=== PATIENT | female | born 1965 | race Caucasian/White ===

== ENCOUNTER 2019-05-06 13:10 | Outpatient (CLI) | payer BC, SELFPAY ==
--- NOTE | 2019-05-06 13:19 | XR_ITS ---
WS: [id number] XR chest 2V* [id number] REASON FOR EXAM: DYSPNEA FINDINGS: Elevation of the right hemidiaphragm. The heart mediastinum were normal. The lung zavaleta are well aerated. There is no pneumonia, pleural effusion, pulmonary edema, pneumotho rax, or mass effect. The hilum and apices normal. XR/XR chest 2V* [id number] IMPRESSION: Negative chest for active pathology. Eventration of the right hemidiaphragm.
== END 2019-05-06 13:11 | disposition home or self-care (01) ==
LOC: RADWPI 13:15
PROVIDERS: Family Provider Electrodiagnostic Medicine; PCP Electrodiagnostic Medicine; Visit Provider Electrodiagnostic Medicine
DX: R06.02 Shortness of breath (principal)
CPT/HCPCS: 71046

== ENCOUNTER 2019-07-04 15:43 | Outpatient (CLI) | payer BC, SELFPAY ==
--- NOTE | 2019-07-04 15:49 | XR_ITS ---
WS: [id number] PROCEDURE: XR chest 2V* [id number] CLINICAL INFORMATION: DYSPNEA COMPARISON: May 06, 2019 FINDINGS: Heart: Normal cardiac silhouette. Aortic calcification. Lungs: Lungs are clear. No consolidation or pleural fluid. Bones: Normal visualized bony structures. XR/XR chest 2V* [id number] IMPRESSION: No acute chest findings. No acute pulmonary infiltrates.
== END 2019-07-04 15:44 | disposition home or self-care (01) ==
LOC: RADWPI 15:46
PROVIDERS: Family Provider Electrodiagnostic Medicine; PCP Electrodiagnostic Medicine; Visit Provider Electrodiagnostic Medicine
DX: R06.00 Dyspnea, unspecified (principal)
CPT/HCPCS: 71046

== ENCOUNTER → 2019-12-12 09:06 | Outpatient (BNVA) | payer BC, SELFPAY | PROVIDERS: Family Provider Electrodiagnostic Medicine; PCP Electrodiagnostic Medicine; Visit Provider Nurse Practitioner Family | DX: N30.20 Other chronic cystitis without hematuria (principal) | CPT/HCPCS: 81003 ==

== ENCOUNTER 2020-01-14 11:59 | Emergency (ER) | payer BC, SELFPAY ==
[2020-01-14 12:28] VITALS: BP 155/82; PULSE 88; RESP 26; TEMP 37.1; O2SAT 93; BMI 28.3
--- NOTE | 2020-01-14 12:41 | XR_ITS ---
WS: [id number] XR chest 1V portable [id number] REASON FOR EXAM: syncope FINDINGS: Compared to the previous examination of 07/04/2019, the patient has developed interstitial infiltrativ e changes in the left lower lung field. Similar changes are seen in the right mid lung field. The heart is mildly enlarged. No pleural effusion. XR/XR chest 1V portable [id number] IMPRESSION: Infiltrative changes of unknown chronicity. Findings could represent acute/suba cute pneumonitis.
--- NOTE | 2020-01-14 12:42 | ECG_ITS ---
[facility] Test Date: 2020-01-14 Pat Name: Aleida Green Department: Room: Gender: Female Psychiatric Assistant: : 1965 Requested By: Ramila oCtto Order Number: [id number] Amador MD: RIAN GUZMAN Measurements Intervals [place] Rate: 85 P: 51 MN: 147 QRS: 61 QRSD: 103 T: 24 QT: 347 QTc: 415 Interpretive Statements SINUS RHYTHM POSSIBLE LEFT ATRIAL ENLARGEMENT [-0.1mV P WAVE IN V1/V2] POSSIBLE INFERIOR MYOCARDIAL INFARCTION , PROBABLY OLD [30 ms Q WAVE IN II/aVF] No previous ECG available for comparison Electronically Signed On 01-16-2020 15:26:32 DEFENSIVE SECONDARY COACH by RIAN GUZMAN [id number]
--- NOTE | 2020-01-14 12:55 | ED_ITS ---
HPI - COVID General: Chief Complaint: COVID symptoms Stated Complaint: COVID + X 1 WK, SYMPTOMS WORSE Time Seen by Provider: 01/14/20 12:43 Source: patient and EMS Mode of arrival: EMS Limitations: no limitations Triage information: Has fever, cough or shortness of breath . Exposure to COVID + person last 14 days History of Present Illness: HPI Narrative: Pleasant 54-year-old female patient presents to the emergency department with 9-day history of Covid symptoms. She reports was tested for Covid on 01/06/2020 with positive results from [employer] [facility]. States past 2 days, increased fever and worsening symptoms. States temperature constantly between 100-101. She reports decreases slightly with use of Tylenol and ibuprofen. States was seen by her primary care provider several days ago with prescription of prednisone and Z-Godwin, has been completed without improvement of symptoms. She has history of hypertension, shallow breathing and positive cough, worsening cough past 2 days. MD complaint: known COVID positive Prior covid testing: yes, results known Prior testing date: 01/06/20 COVID 19 common symptoms: positive fever(s), chills, cough, non-productive cough, dyspnea, fatigue, body aches, headache(s), nasal congestion, nausea and diarrhea; negative productive cough COVID 19 other sytmptoms: positive lethargy; negative chest pain or confusion Onset (ago): day(s) (9) Severity: moderate and rapidly worsening Pertinent comorbid conditions: hypertension Treatment prior to arrival: acetaminophen, ibuprofen, antibiotics and steroids COVID Results: No Data to Display Review of Systems General: Reports: 10 or more systems reviewed and unremarkable except in HPI and below Const: Reports: fever(s), chills, body aches, change in appetite, fatigue and malaise Eyes: Denies: blurry vision or eye redness ENMT: Reports: hoarseness, nasal discharge, nasal congestion and post nasal drip Card: Denies: chest pain, palpitations, irregular heart rhythm, lightheadedness or dyspnea on exertion Resp: Reports: dyspnea, non-productive cough and chest congestion; Denies: productive cough GI: Reports: nausea and diarrhea; Denies: abdominal pain, constipation or GI cramping : Reports: difficulty voiding and urinary incontinence (with cough); Denies: dysuria Musc: Denies: neck pain, back pain or joint pain Skin/Breast: Denies: rash, pruritus, skin tenderness or changes in skin color Neuro: Reports: headache(s); Denies: numbness in extremities, confusion or behavioral changes Psych: Denies: anxiety or depression Michael/Lymph: Denies: easy bruising PFS ED PFSH: Medical History (Updated 01/14/20 @ 16:03 by FERNANDA Torres) History of deviated nasal septum Recurrent UTI Surgical History Hx of breast implants, bilateral Family History Father Diabetes CAD (coronary artery disease) Other Hypertension Social History Smoking and tobacco status: never smoked Alcohol intake: current Alcohol intake frequency: holidays/special occasions only Adopted: No Caregiver/support person: No Lives independently: No Household members: spouse Marital status: Current occupational status: employed Physical Exam Const: COMMON NORMALS: no acute distress, patient oriented x3 and alert GENERAL APPEARANCE: cooperative, well hydrated and other (appears not feeling well) NUTRITIONAL APPEARANCE: overweight ORIENTATION/CONSCIOUSNESS: Yes awake, Yes oriented to person, Yes oriented to place and Yes oriented to time HENMT: COMMON NORMALS: normocephalic, atraumatic, Normal external nose present and moist oral mucous membranes HEAD & SCALP: normal to inspection, normoc ephalic and atraumatic FACE & SINUS: normal facial exam NOSE: Normal external nose present MOUTH: Normal oral and palatal mucosa present THROAT: posterior oropharynx normal Eye: COMMON NORMALS: Equal, round and reactive pupils present and EOMs intact bilaterally GENERAL EYE: appearance normal, both eyes and all related structures PUPIL: Yes Equal, round and reactive pupils present Neck/C-Spine: COMMON NORMALS: full ROM and no lymphadenopathy GENERAL: Yes normal visual inspection and Yes trachea midline CERVICAL SPINE: Yes cervical ROM normal, No pain with cervical ROM, No Cervical spine tenderness and No Paracervical muscle tenderness Lymph: LYMPHATIC: no lymphadenopathy noted Chest: COMMONS NORMALS: normal inspection of the chest Resp: COMMON NORMALS: normal respiratory effort and clear to auscultation bilaterally EFFORT & INSPECTION: Yes able to speak in complete sentences, Yes symmetric chest movement, Yes tachypneic, No audible wheezes and No tracheal deviation AUSCULTATION: clear to auscultation bilaterally and diminished lung sounds bilateral in the lower lung zavaleta Cardio: COMMON NORMALS: regular rhythm, S1 normal heart sound present, S2 normal heart sound present and Peripheral pulses 2+ throughout RHYTHM: regular rhythm HEART SOUNDS: S1 normal heart sound present and S2 normal heart sound present PERIPHERAL PULSES: Peripheral pulses 2+ throughout GI: COMMON NORMALS: Normal to inspection, nondistended, normoactive bowel sounds present, Soft to palpation and non-tender INSPECTION: Yes normal to inspection PALPATION: Yes Soft to palpation, No Hepatomegaly present and No Splenomegaly present : COMMON NORMALS: Yes no CVA tenderness BLADDER/KIDNEY EXAM: Yes no CVA tenderness Back/Pelvis: COMMON NORMALS: no CVA tenderness, thoracic and lumbar spine normal to inspection and no thoracic nor lumbar tenderness THORACIC SPINE/UPPER BACK: Yes normal to inspection LUMBAR SPINE/LOWER BACK: Yes normal to inspection SACROILIAC JOINTS: Yes SI joints normal Extremity: COMMON NORMALS: normal to inspection and capillary refill normal GENERAL: Yes normal exam except as noted Neuro: COCO COMA SCALE: document GCS findings Boyden coma scale eye opening: Spontaneous Boyden coma scale verbal response: Orientated Boyden coma scale motor response: Obey commands Coco coma scale total score: 15 COMMON NORMALS: patient oriented x3 and no focal motor deficits SENSORIUM/ ORIENTATION: Yes alert, Yes oriented to person, Yes oriented to place and Yes oriented to time MOTOR EXAM: 5/5 motor strength present throughout Psych: COMMON NORMALS: mental status grossly normal, Normal thought process present and cooperative ACTIVITY/MOTOR BEHAVIOR: Yes appropriate eye contact THOUGHT PROCESS: Normal thought process present Skin: COMMON NORMALS: no rashes or lesions noted and turgor normal GENERAL SKIN EXAM: no rashes or lesions noted and turgor normal Course ED course: 54-year-old female patient presents to the emergency department with worsening Covid symptoms. Oxygen saturation 90% on room air when asleep, she did have occasional episode of oxygen saturation drop to 88 to 90%. C- reactive protein and ESR elevated consistent with illness. D-dimer 0.46, lactate 1.0. Influenza screen negative. IV fluids administered here in the ED along with Tylenol for fever. She is encouraged to stay in the hospital due to illness. She reports would like to go home with portable oxygen. She agrees to return to the emergency department if she worsens or has difficulty catching her breath or worsening symptoms. She was provided prescription of Zofran, benzonatate, Ventolin and dexamethasone. She was advised to push oral fluids as this will help with fever and prevent dehydration. Verbalized understanding, agrees to follow-up with a primary care provider in 1 week. She also agrees to return to the emergency department if she develops hypoxia on her home oxygen monitoring device. Vital Signs: Vital signs: Vital Signs Temperature 98.8 F 01/14/20 12:28 Pulse Rate 93 01/14/20 16:19 Respiratory Rate 16 01/14/20 16:19 Blood Pressure 146/89 01/14/20 16:19 Pulse Oximetry 92 01/14/20 16:19 MDM - COVID Lab Data: Labs: Lab Results 01/14/20 01/14/20 01/14/20 Range/Units 13:20 13:20 13:20 WBC 5.4 (4.0-10.0) 10^3/ uL RBC 4.34 (4.1-5.3) 10^6/u L Hgb 13.6 (11.5-15.3) g/dL Hct 41.9 (37.0-47.0) % MCV 96.5 (81-99) fL MCH 31.3 (28.0-34.0) pg MCHC 32.5 (30.0-36.0) g/dL RDW 12.1 (12.1-15.1) % Plt Count 163 (130-400) 10^3/c mm MPV 9.5 (7.4-10.4) fL Neut % (Auto) 73.5 % Lymph % (Auto) 19.0 % [place] % (Auto) 6.5 % Eos % (Auto) 0.2 % Baso % (Auto) 0.4 % Neut # (Auto) 3.98 (1.8-7.7) 10^3/u L Lymph # (Auto) 1.0 (0.8-4.8) 10^3/u L [place] # (Auto) 0.4 (0.2-0.9) 10^3/u L Eos # (Auto) 0.0 (0.0-0.8) 10^3/u L Baso # (Auto) 0.0 (0.0-0.1) 10^3/u L Nucleated RBC % (a uto) 0 % Nucleated RBCs # 0.0 /100WBC ESR 27 H (0-15) mm/hr D-Dimer 0.46 (0-0.59) ug/mIFE U Sodium (136-145) mmol/L Potassium (3.5-5.1) mmol/L Chloride (98-107) mmol/L Carbon Dioxide (22-29) mmol/L Anion Gap (5-19) BUN (6-20) mg/dL Creatinine (0.5-0.9) mg/dL GFR Calculation (90-130) mL/min Glucose (65-115) mg/dL Calculated Osmolal ity (285-295) mOsm/k g Lactate (0.5-2.2) mmol/L Calcium (8.5-10.5) mg/dL Total Bilirubin (0.15-1.2) mg/dL AST (0-32) U/L ALT (0-33) U/L Alkaline Phosphata se (35-105) IU/L Troponin T Baselin e (0-10) ng/L Troponin T 120 [place] (0-10) ng/L Delta Troponin T (0-10) ABS# C-Reactive Protein (0.0-4.9) mg/L Total Protein (6.6-8.7) g/dL Albumin (3.5-5.2) g/dL Globulin (1.3-4.6) g/dL Procalcitonin (0-0.5) ng/mL Influenza Type A A g (Negative) Influenza Type B A g (Negative) 01/14/20 01/14/20 01/14/20 Range/Units 13:20 13:20 13:20 WBC (4.0-10.0) 10^3/ uL RBC (4.1-5.3) 10^6/u L Hgb (11.5-15.3) g/dL Hct (37.0-47.0) % MCV (81-99) fL MCH (28.0-34.0) pg MCHC (30.0-36.0) g/dL RDW (12.1-15.1) % Plt Count (130-400) 10^3/c mm MPV (7.4-10.4) fL Neut % (Auto) % Lymph % (Auto) % [place] % (Auto) % Eos % (Auto) % Baso % (Auto) % Neut # (Auto) (1.8-7.7) 10^3/u L Lymph # (Auto) (0.8-4.8) 10^3/u L [place] # (Auto) (0.2-0.9) 10^3/u L Eos # (Auto) (0.0-0.8) 10^3/u L Baso # (Auto) (0.0-0.1) 10^3/u L Nucleated RBC % (a uto) % Nucleated RBCs # /100WBC ESR (0-15) mm/hr D-Dimer (0-0.59) ug/mIFE U Sodium 141 (136-145) mmol/L Potassium 4.0 (3.5-5.1) mmol/L Chloride 103 (98-107) mmol/L Carbon Dioxide 31 H (22-29) mmol/L Anion Gap 11.0 (5-19) BUN 10 (6-20) mg/dL Creatinine 0.6 (0.5-0.9) mg/dL GFR Calculation 103.8 (90-130) mL/min Glucose 96 (65-115) mg/dL Calculated Osmolal ity 291 (285-295) mOsm/k g Lactate 1.0 (0.5-2.2) mmol/L Calcium 8.2 L (8.5-10.5) mg/dL Total Bilirubin 0.3 (0.15-1.2) mg/dL AST 35 H (0-32) U/L ALT 41 H (0-33) U/L Alkaline Phosphata se 87 (35-105) IU/L Troponin T Baselin e 7 (0-10) ng/L Troponin T 120 [place] (0-10) ng/L Delta Troponin T (0-10) ABS# C-Reactive Protein 58.3 H (0.0-4.9) mg/L Total Protein 6.1 L (6.6-8.7) g/dL Albumin 3.9 (3.5-5.2) g/dL Globulin 2.2 (1.3-4.6) g/dL Procalcitonin 0.05 (0-0.5) ng/mL Influenza Type A A g (Negative) Influenza Type B A g (Negative) 01/14/20 01/14/20 Range/Units 13:50 15:00 WBC (4.0-10.0) 10^3/ uL RBC (4.1-5.3) 10^6/u L Hgb (11.5-15.3) g/dL Hct (37.0-47.0) % MCV (81-99) fL MCH (28.0-34.0) pg MCHC (30.0-36.0) g/dL RDW (12.1-15.1) % Plt Count (130-400) 10^3/c mm MPV (7.4-10.4) fL Neut % (Auto) % Lymph % (Auto) % [place] % (Auto) % Eos % (Auto) % Baso % (Auto) % Neut # (Auto) (1.8-7.7) 10^3/u L Lymph # (Auto) (0.8-4.8) 10^3/u L [place] # (Auto) (0.2-0.9) 10^3/u L Eos # (Auto) (0.0-0.8) 10^3/u L Baso # (Auto) (0.0-0.1) 10^3/u L Nucleated RBC % (a uto) % Nucleated RBCs # /100WBC ESR (0-15) mm/hr D-Dimer (0-0.59) ug/mIFE U Sodium (136-145) mmol/L Potassium (3.5-5.1) mmol/L Chloride (98-107) mmol/L Carbon Dioxide (22-29) mmol/L Anion Gap (5-19) BUN (6-20) mg/dL Creatinine (0.5-0.9) mg/dL GFR Calculation (90-130) mL/min Glucose (65-115) mg/dL Calculated Osmolal ity (285-295) mOsm/k g Lactate (0.5-2.2) mmol/L Calcium (8.5-10.5) mg/dL Total Bilirubin (0.15-1.2) mg/dL AST (0-32) U/L ALT (0-33) U/L Alkaline Phosphata se (35-105) IU/L Troponin T Baselin e (0-10) ng/L Troponin T 120 [place] 7.56 (0-10) ng/L Delta Troponin T 0.56 (0-10) ABS# C-Reactive Protein (0.0-4.9) mg/L Total Protein (6.6-8.7) g/dL Albumin (3.5-5.2) g/dL Globulin (1.3-4.6) g/dL Procalcitonin (0-0.5) ng/mL Influenza Type A A g Negative (Negative) Influenza Type B A g Negative (Negative) COVID Results: No Data to Display Discharge Plan Discharge Patient Disposition: Home Clinical Impression: COVID-19, Acute bronchitis due to 2019-nCoV Condition: Stable Prescriptions: New benzonatate 200 mg capsule 200 mg PO TID PRN (Reason: cough) Qty: 20 RF: 0 Zofran 4 mg tablet 4 mg PO Q4H PRN (Reason: Nausea And Vomiting) Qty: 10 RF: 0 Ventolin HFA 90 mcg/actuation HFA aerosol inhaler 2 puff INHALATION Q4H PRN (Reason: shortness of breath or wheezing) Qty: 18 RF: 0 dexamethasone 6 mg tablet 6 mg PO DAILY Qty: 10 RF: 0 No Action valsartan 320 mg tablet 320 mg PO DAILY RF: 0 levothyroxine 100 mcg capsule 100 mcg PO DAILY RF: 0 hydrochlorothiazide 12.5 mg tablet 12.5 mg PO DAILY RF: 0 aspirin [Adult Aspirin Regimen] 81 mg tablet,delayed release (DR/EC) 81 mg PO DAILY RF: 0 multivitamin with iron [Daily Multiple Vitamins/Iron] Tablet 1 tab PO DAILY RF: 0 cholecalciferol (vitamin D3) 25 mcg (1,000 unit) capsule 25 mcg PO DAILY RF: 0 Neuriva See Rx Instructions .ROUTE .COMPLEX RF: 0 fluticasone propionate 50 mcg/actuation spray,suspension 1 spray INTRANASAL DAILY RF: 0 Multivitamin And Mineral Tablet 1 tab PO DAILY RF: 0 Mucinex 1,200 mg Tablet Extended Release 12hr 1,200 mg PO BID RF: 0 Quercetin See Rx Instructions .ROUTE .COMPLEX RF: 0 Zicam See Rx Instructions .ROUTE .COMPLEX RF: 0 zinc 1 tab PO DAILY RF: 0 Discharge Orders: Discharge Order (Routine); Ordered 01/14/20 Ordered By: Ramila Nails Referrals: Reji Meza DO [Primary Care Provider] - Discharge Diet: Advance as tolerated and Clear Liquid Discharge Activity: Limit activity as instructed Patient Instructions: Acute Bronchitis (ED), Acute Nausea and Vomiting (ED), Viral Syndrome (ED) Activity Restrictions/Additional Instructions: Return to the emergency department if you develop difficulty breathing, inability to catch your breath, nausea and vomiting despite use of Zofran Test your oxygen level frequently, oxygen level should be above 90%, if low oxygen level occurs, oxygen at 90% or lower, you will need to return to the emergency department Push fluids, your body will require lots and lots of fluids because of fever. Fever can induce dehydration Continue Tylenol and ibuprofen as needed for fever and pain. May take 1 g of Tylenol 3 times daily, 2, 500 mg tablets 3 times daily, do not exceed this dose as Tylenol toxicity can occur Follow-up with your primary care doctor next week to ensure you are improving Coding Level of Care Code ED Telecommunications Line Installer for Chg Fwd Exam Comprehensive
[2020-01-14 13:00] VITALS: BP 125/85; PULSE 78; O2SAT 93
[2020-01-14] MEDS: sodium chloride 0.9% 1,000 ML 999 ML IV (13:30)
[2020-01-14 13:31] LABS: Basophils % 0.4 %; Eosinophils % 0.2 %; Hematocrit 41.9 % (37.0-47.0); Hemoglobin 13.6 g/dL (11.5-15.3); Mean Corpuscular HGB Conc 32.5 g/dL (30.0-36.0); Mean Corpuscular Hemoglobin 31.3 pg (28.0-34.0); Mean Corpuscular Volume 96.5 fL (81-99); Mean Platelet Volume 9.5 fL (7.4-10.4); Monocytes # 0.4 10^3/uL (0.2-0.9); Monocytes % 6.5 %; Neutrophils # 3.98 10^3/uL (1.8-7.7); Neutrophils % 73.5 %; Nucleated Red Blood Cells % 0 %; Platelet Count 163 10^3/cmm (130-400); Red Blood Count 4.34 10^6/uL (4.1-5.3); Red Cell Distribution Width 12.1 % (12.1-15.1); White Blood Count 5.4 10^3/uL (4.0-10.0)
[2020-01-14 13:45] LABS: D Dimer 0.46 ug/mIFEU (0-0.59)
[2020-01-14 13:51] LABS: Alanine Aminotransferase 41 U/L (0-33); Albumin Level 3.9 g/dL (3.5-5.2); Alkaline Phosphatase 87 IU/L (35-105); Aspartate Amino Transferase 35 U/L (0-32); Blood Urea Nitrogen 10 mg/dL (6-20); C Reactive Protein 58.3 mg/L (0.0-4.9); Calcium 8.2 mg/dL (8.5-10.5); Carbon Dioxide 31 mmol/L (22-29); Chloride 103 mmol/L (98-107); Globulin 2.2 g/dL (1.3-4.6); Glomerular Filtration Rate 103.8 mL/min (90-130); Glucose 96 mg/dL (65-115); Osmolality Calculated 291 mOsm/kg (285-295); Sodium 141 mmol/L (136-145); Total Bilirubin 0.3 mg/dL (0.15-1.2); Total Protein 6.1 g/dL (6.6-8.7)
[2020-01-14 13:52] LABS: Troponin(5th) Baseline 7 ng/L (0-10)
[2020-01-14 14:00] VITALS: BP 136/85; PULSE 93; O2SAT 92
[2020-01-14 14:23] LABS: Procalcitonin 0.05 ng/mL (0-0.5)
[2020-01-14 14:25] LABS: Erythrocyte Sedimentation Rate 27 mm/hr (0-15)
--- NOTE | 2020-01-14 14:42 | ECG_ITS ---
[facility] Test Date: 2020-01-14 Pat Name: Aleida Green Department: Room: Gender: Female Hot Mill Worker: : 1965 Requested By: Ramila Cotto Order Number: [id number] Amador MD: RIAN GUZMAN Measurements Intervals [place] Rate: 86 P: 47 [place]: 149 QRS: 43 QRSD: 101 T: 32 QT: 357 QTc: 428 Interpretive Statements SINUS RHYTHM POSSIBLE LEFT ATRIAL ENLARGEMENT [-0.1mV P WAVE IN V1/V2] Compared to ECG 01/14/2020 12:56:42 Myocardial infarct finding no longer present Electronically Signed On 01-16-2020 15:34:07 ENVELOPE MACHINE OPERATOR by RIAN GUZMAN [id number] f
[2020-01-14 14:46] LABS: Influenza A by IFA Negative (Negative); Influenza B by IFA Negative (Negative)
[2020-01-14 15:03] VITALS: BP 167/97; PULSE 93; RESP 16; O2SAT 92
[2020-01-14 15:45] LABS: Troponin 5 2HR 7.56 ng/L (0-10); Troponin 5 2HR Delta 0.56 ABS# (0-10)
[2020-01-14] MEDS: acetaminophen 500 mg Tablet 1000 MG PO (15:45)
[2020-01-14] MEDS: dexamethasone 4 mg Tablet 6 MG PO (15:45)
[2020-01-14 16:11] VITALS: O2SAT 90; O2SAT 91; O2SAT 95
[2020-01-14 16:19] VITALS: BP 146/89; PULSE 93; RESP 16; O2SAT 92
== END 2020-01-14 16:20 | disposition home or self-care (01) ==
PROVIDERS: Emergency Provider Nurse Practitioner Family; PCP Electrodiagnostic Medicine
DX: U07.1 COVID-19 (principal); J20.8 Acute bronchitis due to other specified organisms; Z79.82 Long term (current) use of aspirin
CPT/HCPCS: 12345; 71045; 80053; 83605; 84145; 84484; 85025; 85378; 85651; 86140; 87804; 93005; 96360; 99283; 99284; J7040; J8540

== ENCOUNTER 2020-02-27 13:43 | Outpatient (CLI) | payer BC, SELFPAY ==
--- NOTE | 2020-02-27 13:50 | MM_ITS ---
WS: [id number] Bilateral screening digital mammogram, 02/27/2020 Clinical Data: SCREENING Comparison: 02/08/2018, 05/09/2014, 01/05/2013. Findings: The breast parenchymal pattern shows fat replacement. No spiculated masses or clustered calcification s are seen. There are no secondary signs of carcinoma. The implants have been removed. There are lymph nodes in both axilla. MM/[place] [id number] Impression: 1. Negative bilateral mammogram unchanged. 2. Recommend annual screening mammograms. BIRADS: 1-Negative FOLLOW UP: 1 Year Follow-up The CAD dry cleaning checker was used.
== END 2020-02-27 13:44 | disposition home or self-care (01) ==
PROVIDERS: PCP Nurse Practitioner Family; Visit Provider Nurse Practitioner Family
DX: Z12.31 Encounter for screening mammogram for malignant neoplasm of breast (principal)
CPT/HCPCS: 77067

== ENCOUNTER 2020-03-09 11:10 | Outpatient (CLI) | payer BC, SELFPAY | END 2020-03-09 11:11 | disposition home or self-care (01) | LOC: LAB 11:12 | PROVIDERS: PCP Nurse Practitioner Family; Visit Provider Internal Medicine Pulmonary Disease | DX: E03.9 Hypothyroidism, unspecified (principal) | CPT/HCPCS: 36415; 84439; 84443 ==

== ENCOUNTER 2020-03-30 15:31 | Outpatient (CLI) | payer BC, SELFPAY ==
--- NOTE | 2020-03-30 15:45 | USCV_ITS ---
Aleida Green Age: 55 Gender: F : 1965 Exam Date: 03/30/2020 15:51 Ordering Phys: Carol Phillips MD ([email or web address]) Technologist: Brenda Brown [place] [facility] [place]: CP CP BP: / HR: 79 Rhythm: Sinus Technical Quality: Adequate MEASUREMENTS (Male / Female) Normal Values 2D ECHO LV Diastolic Diameter PLAX 3.4 cm 4.2 - 5.9 / 3.9 - 5.3 cm LV Systolic Diameter PLAX 3.2 cm IVS Diastolic Thickness 1.3 cm 0.6 - 1.0 / 0.6 - 0.9 cm IVS Systolic Thickness 1.4 cm LVPW Diastolic Thickness 1.3 cm 0.6 - 1.0 / 0.6 - 0.9 cm LVPW Systolic Thickness 1.2 cm LVOT Diameter 2.1 cm LV Ejection Fraction 2D Teich 15.2 % LV Ejection Fraction MOD 2C 34.4 % LV Ejection Fraction 2C AL 38.0 % LA Diameter 3.5 cm LA Width 2.8 cm LA Height 3.9 cm RA Width 2.6 cm RA Height 4.1 cm Aorta at Sinotubular Diameter 3.6 cm M-MODE LV Diastolic Diameter MM 4.6 cm 4.2 - 5.9 / 3.9 - 5.3 cm LV Systolic Diameter MM 3.2 cm LV Ejection Fraction MM Teich 58.0 % IVS Diastolic Thickness MM 1.3 cm 0.6 - 1.0 / 0.6 - 0.9 cm IVS Systolic Thickness MM 1.3 cm LVPW Diastolic Thickness MM 1.1 cm 0.6 - 1.0 / 0.6 - 0.9 cm LVPW Systolic Thickness MM 1.3 cm RV Diastolic Diameter MM 2.7 cm Aortic Annulus Diameter 3.7 cm LA Ao Ratio MM 1.0 MV E Point Septal Separation 0.8 cm DOPPLER AV Peak Velocity 143.0 cm/s LVOT Peak Velocity 81.0 cm/s AV Area Cont Eq vti 2.1 cm squared AV Area Cont Eq pk 2.0 cm squared MV Area PHT 5.0 cm squared Mitral E to A Ratio 0.9 MV E' Velocity 39.0 cm/s Mitral E to MV E' Ratio 7.7 Mitral E to LV E' Lateral Ratio 7.2 Mitral E to LV E' Septal Ratio 8.3 TR Peak Velocity 150.6 cm/s TR Peak Gradient 9.1 mmHg TR Mean Velocity 120.7 cm/s TR Mean Gradient 7.0 mmHg TR Velocity Time Integral 22.5 cm TV Peak E Velocity 65.0 cm/s Right Atrial Pressure 3.0 mmHg Pulmonary Artery Systolic Pressu 12.1 mmHg PV Peak Velocity 47.0 cm/s RV Acceleration Time 0.1 s RV Ejection Time 0.3 s RV AcT/ET 0.4 FINDINGS Left Ventricle Normal left ventricular size with an ejection fraction of around 55% . mild left ventricular hypertrophy. The septum was found to have mild diffuse hypokinesia. Because of the poor ultrasonic window, segmental wall motion analysis difficult.Grade I/IV diastolic dysfunction (abnormal relaxation filling pattern), normal to mildly elevated filling pressures. Right Ventricle The right ventricle is normal in size and function. Right Atrium The right atrium is normal in size. Left Atrium The left atrium is normal in size. Mitral Valve No gross abnormalities noted Aortic Valve Difficult to visualize . Tricuspid Valve No gross abnormalities noted . Pulmonic Valve No gross abnormalities noted . Pericardium Normal pericardium without effusion. Aorta Normal ascending aorta dimension. CONCLUSIONS Normal left ventricular size with an ejection fraction of around 55% . mild left ventricular hypertrophy. The septum was found to have mild diffuse hypokinesia. Because of the poor ultrasonic window, segmental wall motion analysis difficult.Grade I/IV diastolic dysfunction (abnormal relaxation filling pattern), normal to mildly elevated filling pressures. No significant stenotic or regurgitant lesions. No obvious intracardiac masses or pericardial effusion. Technically difficult study because of the poor ultrasonic window Dr Carol Phillips MD [facility] (Electronically Signed) Final Date: 01 April 2020 19:00 S
== END 2020-03-30 15:32 | disposition home or self-care (01) ==
LOC: US 15:32
PROVIDERS: PCP Nurse Practitioner Family; Visit Provider Internal Medicine Cardiovascular Disease
DX: R07.89 Other chest pain (principal); R94.31 Abnormal electrocardiogram [ECG] [EKG]
CPT/HCPCS: 93306

== ENCOUNTER 2020-04-21 10:28 | Outpatient (CLI) | payer BC, SELFPAY ==
--- NOTE | 2020-04-21 10:34 | ECG_ITS ---
[facility] Test Date: 2020-04-21 Pat Name: Aleida Green Department: Room: Gender: Female Central Services Tech: : 1965 Requested By: Carol Phillips Order Number: [id number] Amador MD: Carol Phillips M.D. Interpretive Statements NAME OF STUDY: LEXISCAN SESTAMIBI STRESS TEST INDICATION: ABNORMAL EKG, PROCEDURE: At the baseline, the EKG revealed normal sinus rhythm with incomplete right bundle branch block pattern. Nonspecific T wave changes. The baseline blood pressure was 129/82 mm Hg with a heart rate of 82 beats/min. Lexiscan was infused over a period of 20 seconds. A total of 0.4 milligrams of Lexiscan was infused. The stress phase was continued for a total of 5 minutes. Heart rate at the end of the stress phase was 93 with a blood pressure 109/71. The EKG at the peak infusion revealed no significant changes. Sestamibi was injected 20 seconds after the Lexiscan infusion. Blood pressure at the end of the recovery phase was 112/70 with a heart rate of 89 per minute. CONCLUSION: 1. No significant EKG changes with the LexiScan infusion 2. No LexiScan induced chest pain or cardiac arrhythmia 3. Normal blood pressure and heart rate response 4. Sestamibi/sestamibi perfusion scan pending; see separate report. Electronically Signed On 04-24-2020 16:56:11 QUALITY CONTROL MICROBIOLOGIST by Carol Phillips M.D. [id number]
--- NOTE | 2020-04-21 10:35 | NMCV_ITS ---
NM abhi perf SPECT r/s* [id number] Aleida Green Age: 55 Gender: F : 1965 Exam Date: 04/21/2020 11:45 Ordering Phys: Carol Phillips MD ([email or web address]) Technologist: WEST Jameson Exam Location: [facility] Indications: Abnormal EKG STRESS TEST Please see separate stress test report in [facility] for full findings IMAGE PROTOCOL Rest/Stress 1 Lexiscan Day Radiopharmaceutical Dose (mCi) Administration Site Administered by Rest: Tc-99m 10.6 IV Tracy Keyana, FLOODPLAIN MANAGER Sestamibi Stress:Tc-99m 32.7 IV Tracy Keyana, FLOODPLAIN MANAGER Sestamibi Rest: 21-Apr-2020 60 Discovery 630 Stress: 21-Apr-2020 45 Discovery 630 0.4mg Lexiscan. Images obtained in supine and prone position. SPECT RESULTS Technical Quality: Good Raw Data Analysis: Breast attenuation Image Corrections: No attenuation or motion correction applied Summed Stress Score: 1 Summed Rest Score: 0 Summed Difference Score: 1 PERFUSION FINDINGS A small area of reversible defect in the apical lateral region with the supine imaging. No significant defect with the prone imaging. FUNCTIONAL RESULTS (calculated via Gated SPECT) Stress Image LV EF (%): 64 Stress EDV (mL):95 TID: 0.95 Stress ESV (mL):34 FUNCTIONAL FINDINGS: Segmental wall motion analysis revealing no gross wall motion abnormalities. IMPRESSIONS 1. Myocardial perfusion imaging revealing a small area of inconsistent reversible defect in the apical lateral region, most likely represent attenuation artifact. 2. Normal LV ejection fraction of 64%. 3. LV wall motion analysis revealing no gross wall motion normalities. 4. Normal LV volume. Possibly no significant coronary ischemia, based on the above findings. Clinical correlation is recommended Dr Carol Phillips MD [facility] (Electronically Signed) Final Date: 22 April 2020 07:25 S
[2020-04-21 10:53] VITALS: BMI 31.6
[2020-04-21] MEDS: regadenoson 0.4 Mg/5 ml Syringe IVP (12:28)
[2020-04-21 12:46] VITALS: BP 111/69; PULSE 90
== END 2020-04-21 10:29 | disposition home or self-care (01) ==
LOC: CDL 10:31
PROVIDERS: PCP Nurse Practitioner Family; Visit Provider Internal Medicine Cardiovascular Disease
DX: R06.02 Shortness of breath (principal); R94.31 Abnormal electrocardiogram [ECG] [EKG]
CPT/HCPCS: 78452; 93017; A9500; J2785

== ENCOUNTER → 2020-04-22 12:05 | Outpatient (BNVA) | payer BC, SELFPAY | PROVIDERS: PCP Nurse Practitioner Family; Visit Provider Internal Medicine Cardiovascular Disease | DX: R06.02 Shortness of breath (principal); I50.33 Acute on chronic diastolic (congestive) heart failure | CPT/HCPCS: 80048; 83880; 86141 ==

== ENCOUNTER → 2020-07-06 12:01 | Outpatient (BNVA) | payer BC, SELFPAY | PROVIDERS: PCP Nurse Practitioner Family; Visit Provider Internal Medicine Cardiovascular Disease | DX: R06.02 Shortness of breath (principal); I50.33 Acute on chronic diastolic (congestive) heart failure; M79.606 Pain in leg, unspecified; R60.0 Localized edema; I10 Essential (primary) hypertension | CPT/HCPCS: 80048; 83880 ==

== ENCOUNTER 2020-08-17 08:30 | Outpatient (CLI) | payer BC, SELFPAY ==
--- NOTE | 2020-08-17 08:45 | USCV_ITS ---
Aleida Green Age: 55 Gender: F : 1965 Exam Date: 08/17/2020 08:47 Ordering Phys: Carol Phillips MD ([email or web address]) Technologist: Merlyn Long [place] [facility] [place]: BILATERAL LEG SWELLING HISTORY: Lower extremity swelling. PROCEDURES: Venous duplex imaging was performed in bilateral lower extremities. The following venous structures were evaluated: common femoral vein, profunda vein, proximal portion of the greater saphenous vein, superficial femoral vein, and the popliteal vein. In addition, the posterior tibial and peroneal trunk were evaluated. FINDINGS: Normal 2-D Doppler and augmentation and compressibility throughout the lower extremity venous structures. Additional imaging through the proximal calf veins also reveals no thrombus. Limited evaluation of the greater saphenous vein is patent with no thrombus.. CONCLUSIONS No evidence of DVT in the above-mentioned identifiable veins. Dr Carol Phillips MD [facility] (Electronically Signed) Final Date: 18 August 2020 09:37 S
== END 2020-08-17 08:31 | disposition home or self-care (01) ==
LOC: US 08:33
PROVIDERS: PCP Nurse Practitioner Family; Visit Provider Internal Medicine Cardiovascular Disease
DX: M79.605 Pain in left leg (principal); M79.604 Pain in right leg; M79.89 Other specified soft tissue disorders
CPT/HCPCS: 93970

== ENCOUNTER → 2021-06-14 15:11 | Outpatient (BNVA) | payer BC, SELFPAY | PROVIDERS: PCP Nurse Practitioner Family; Visit Provider Urology | DX: N39.0 Urinary tract infection, site not specified (principal) | CPT/HCPCS: 81003 ==

== ENCOUNTER 2021-08-30 07:48 | Outpatient (CLI) | payer BC, SELFPAY ==
--- NOTE | 2021-08-30 08:06 | MM_ITS ---
WS: [id number] BILATERAL SCREENING DIGITAL BREAST TOMOSYNTHESIS MAMMOGRAM WITH CAD HISTORY: SCREENING, implants removed since the prior study. COMPARISON: 02/27/2020 and 02/08/2018 Bilateral CC and MLO views with tomosynthesis and synthetic mammography submitted. Computer aided det ection analyzed. Breast composition: There are scattered areas of fibroglandular density. No suspicious masses, microc alcifications or architectural distortion. Lymph nodes are mildly prominent but maintain a normal fat ty hilum. No interval change. MM/[place] [id number] IMPRESSION: BI-RADS: 2-Benign FOLLOW UP: 1 Year Follow-up
== END 2021-08-30 07:49 | disposition home or self-care (01) ==
LOC: RAD 07:50
PROVIDERS: PCP Nurse Practitioner Family; Visit Provider Nurse Practitioner Family
DX: Z12.31 Encounter for screening mammogram for malignant neoplasm of breast (principal)
CPT/HCPCS: 77063; 77067

== ENCOUNTER 2022-05-21 06:00 | Outpatient (RCR) | payer BC, SELFPAY | END 2022-06-19 23:59 | disposition home or self-care (01) | LOC: WPT 06:00 | PROVIDERS: Visit Provider Orthopaedic Surgery Sports Medicine | DX: M16.11 Unilateral primary osteoarthritis, right hip (principal) | CPT/HCPCS: 97110; 97112; 97161; 97530 ==

== ENCOUNTER 2022-06-20 06:00 | Outpatient (RCR) | payer BC, SELFPAY | END 2022-07-20 23:59 | disposition home or self-care (01) | LOC: WPT 06:00 | PROVIDERS: Visit Provider Orthopaedic Surgery Sports Medicine | DX: M16.11 Unilateral primary osteoarthritis, right hip (principal) | CPT/HCPCS: 97110; 97112; 97530 ==

== ENCOUNTER 2022-07-21 06:00 | Outpatient (RCR) | payer BC, SELFPAY | END 2022-08-19 23:59 | disposition home or self-care (01) | LOC: WPT 06:00 | PROVIDERS: Visit Provider Orthopaedic Surgery Sports Medicine | DX: M16.11 Unilateral primary osteoarthritis, right hip (principal) | CPT/HCPCS: 97110; 97112; 97530 ==

== ENCOUNTER 2022-08-20 06:00 | Outpatient (RCR) | payer BC, SELFPAY | END 2022-09-19 23:59 | disposition home or self-care (01) | LOC: WPT 06:00 | PROVIDERS: Visit Provider Orthopaedic Surgery Sports Medicine | DX: M25.551 Pain in right hip (principal); M16.11 Unilateral primary osteoarthritis, right hip | CPT/HCPCS: 97110; 97112; 97530 ==

== ENCOUNTER 2023-11-21 06:00 | Outpatient (RCR) | payer BC, SELFPAY | END 2023-12-21 23:59 | disposition home or self-care (01) | LOC: WPT 06:00 | PROVIDERS: Visit Provider Orthopaedic Surgery Sports Medicine | DX: M75.21 Bicipital tendinitis, right shoulder (principal) | CPT/HCPCS: 97110; 97161; 97530 ==

== ENCOUNTER 2023-12-22 06:00 | Outpatient (RCR) | payer BC, SELFPAY | END 2024-01-20 23:59 | disposition home or self-care (01) | LOC: WPT 06:00 | PROVIDERS: Visit Provider Orthopaedic Surgery Sports Medicine | DX: M75.21 Bicipital tendinitis, right shoulder (principal); S43.431D Superior glenoid labrum lesion of right shoulder, subsequent encounter; X58.XXXD Exposure to other specified factors, subsequent encounter | CPT/HCPCS: 97110; 97530 ==

== ENCOUNTER 2024-05-06 11:29 | Outpatient (CLI) | payer BC, SELFPAY ==
--- NOTE | 2024-05-06 11:31 | MM_ITS ---
WS: [id number] BILATERAL 3D TOMOSYNTHESIS DIGITAL SCREENING MAMMOGRAPHY WITH CAD CLINICAL INFORMATION: SCREENING HISTORY: Screening mammogram. No current complaints. COMPARISON: 2021 TECHNIQUE: Bilateral CC and MLO views. FINDINGS: Scattered fibroglandular densities bilaterally. No suspicious focal mass, asymmetry, calcifications, or architectural distortion. No evidence of malignancy. A few tiny incidental punctate calcifications. MM/MM scr tomosynthesis [id number] IMPRESSION: DENSITY: There are scattered areas of fibroglandular density. BI-RADS: 2 - Benign. FOLLOW UP: 1 Year Follow-up Recommend return to annual screening mammography.
== END 2024-05-06 11:30 | disposition home or self-care (01) ==
PROVIDERS: PCP Nurse Practitioner Family; Visit Provider Nurse Practitioner Family
DX: Z12.31 Encounter for screening mammogram for malignant neoplasm of breast (principal); R92.323 Mammographic fibroglandular density, bilateral breasts; R92.1 Mammographic calcification found on diagnostic imaging of breast
CPT/HCPCS: 77063; 77067